=== PATIENT | male | born 1975 | race Caucasian/White ===

== ENCOUNTER 2018-04-03 23:48 | Emergency (ER) | payer SELFPAY ==
[~2018-04-03] VITALS: Ht 175.3 cm; Wt 85.0 kg
[~2018-04-03 23:48] MED LIST: BENZ100 PO; CIPR500T4 PO; HYDR-3580 PO; RIVA10 PO
[2018-04-03 23:52] VITALS: BP 147/79; PULSE 69; RESP 18; TEMP 98.2; O2SAT 96
[2018-04-04] MEDS ORDERED: MAGICADU2 SWISH-SPIT (00:11)
[2018-04-04] MEDS ORDERED: PERI0.126 SWISH-SPIT (00:11)
[2018-04-04] MEDS ORDERED: CLIN300C5 PO (00:11)
--- NOTE | 2018-04-04 00:14 | PD ---
HPI Chief Complaint: Edema Time Seen by Provider: 00:10 Travel History International Travel<30 days: No Contact w/Intl Traveler<30days: No Traveled to known affect area: No History of Present Illness HPI 42-year-old male presents for evaluation of dental pain and swelling. Symptoms initially started 1 month ago, gradually worsened since then, which prompted evaluation. Pain is throbbing, constant, aggravated by chewing with no relieving factors. Denies any fevers, chills, facial trauma. He has no other complaints at this time. PFSH Past Medical History Anxiety: Yes Depression: Yes Cardiac Catheterization: Yes Diabetes: No Diminished Hearing: No Gastrointestinal Disorders: Yes Neurologic: No Respiratory: No Immunizations Current: Yes Myocardial Infarction: Yes (from "one time" cocaine use per pt) Ulcer: Yes Past Surgical History Abdominal Surgery: Yes (appy ) Appendectomy: Yes Body Medical Devices: right knne has plate Social History Alcohol Use: Yes (SOCIALY ON WEEKENDS) Tobacco Use: Yes (PACK CIGARS ) Substance Use: Yes (MARIJUANA ) Allergies-Medications (Allergen,Severity, Reaction): Coded Allergies: No Known Allergies (Verified Adverse Reaction, Unknown, 04/03/18) Reported Meds & Prescriptions Reported Meds & Active Scripts Active Magic Mouthwash Adult Liq (Multi-Ingredient Mouthwash/Gargle) 120 Ml Susp 10 Ml SWISH-SPIT ACHS Each 5mL contains: Nystatin 200,000units, Diphenhydramine 4.25mg, Viscous Lidocaine 10mg, Whiteside syrup 0.8 mL Peridex Liq (Chlorhexidine Gluconate (Mouth) Liq) 0.12% Soln 15 Ml SWISH-SPIT BID Clindamycin (Clindamycin HCl) 300 Mg Cap 300 Mg PO TID 10 Days Review of Systems General / Constitutional: No: Fever, Chills Eyes: No: Diploplia, Blurred Vision HENT: Positive: Dental Difficulties, No: Headaches, Sore Throat, Rhinitis Cardiovascular: No: Chest Pain or Discomfort Respiratory: No: Cough Physical Exam Narrative GENERAL: Well-developed well-nourished male in no acute distress SKIN: Warm and dry. HEAD: Atraumatic. Normocephalic. EYES: Pupils equal and round. No scleral icterus. No injection or drainage. ENT: No nasal bleeding or discharge. Mucous membranes pink and moist. The right maxillary gumline is erythematous. The right maxillary first molar is decayed to the roots. The surrounding gumline is erythematous and edematous. There is no trismus, no sublingual edema. NECK: Trachea midline. No JVD. No lymphadenopathy. CARDIOVASCULAR: Regular rate and rhythm. No murmur appreciated. RESPIRATORY: No accessory muscle use. Clear to auscultation. Breath sounds equal bilaterally. Data Data Last Documented VS Vital Signs Date Time Temp Pulse Resp B/P (MAP) Pulse Ox O2 Delivery O2 Flow Rate FiO2 04/03/18 23:52 98.2 69 18 147/79 (101) 96 Orders Orders Ed Discharge Order (04/04/18 00:10) Clindamycin Inj (Cleocin Inj) (04/04/18 00:15) MDM Medical Decision Making Medical Screen Exam Complete: Yes Emergency Medical Condition: Yes Medical Record Reviewed: Yes Differential Diagnosis Dental caries, pulpitis, periodontal abscess, pericoronitis, osteomyelitis Narrative Course Examination is consistent with dental caries and likely periodontal abscess formation in the right maxillary molar region. Clindamycin will be initiated. Recommended follow-up with a dentist for definitive treatment. Diagnosis Primary Impression: Dental caries Additional Impression: Periodontal abscess Additional Instructions: Follow-up with a dentist for definitive therapy. Avoid tobacco products. Medication as prescribed. [id number] Tylenol/ibuprofen for pain. Return for any emergent medical conditions. Med/Other Pt SpecificInfo: Prescription(s) given Scripts Urdwaryx-Pnpvurbsnlrbmbc-Rmlapdtlk Liq (Magic Mouthwash Adult Liq) 120 Ml Susp 10 ML SWISH-SPIT ACHS for Mouth sores, #120 ML 0 Refills Each 5mL contains: Nystatin 200,000units, Diphenhydramine 4.25mg, Viscous Lidocaine 10mg, Whiteside syrup 0.8 mL Prov: Bill Ramirez MD 04/04/18 Chlorhexidine Gluconate (Mouth) Liq (Peridex Liq) 0.12% Soln 15 ML SWISH-SPIT BID, #473 ML 0 Refills Prov: Bill Ramirez MD 04/04/18 Clindamycin (Clindamycin) 300 Mg Cap 300 MG PO TID for Infection for 10 Days, CAP 0 Refills Prov: Bill Ramirez MD 04/04/18 Disposition: 01 DISCHARGE HOME Condition: Stable Duane Claudio Apr 04, 2018 00:14
[2018-04-04] MEDS ORDERED: CLINDAMYCIN PHOS 600 MG/4 ML VIAL IM ONE (00:15)
== END 2018-04-04 00:31 | disposition home or self-care (01) ==
LOC: NEPD 23:48
DX: K02.9 Dental caries, unspecified (principal); K05.219 Aggressive periodontitis, localized, unspecified severity; I25.2 Old myocardial infarction; F32.9 Major depressive disorder, single episode, unspecified; F41.9 Anxiety disorder, unspecified; F17.290 Nicotine dependence, other tobacco product, uncomplicated
CPT/HCPCS: 96372